=== PATIENT | female | born 1955 ===

== ENCOUNTER 2020-10-27 10:21 | Emergency (ER) | payer OTHER ==
[2020-10-27 10:54] LABS: Absolute Lymphocytes (CBC) 1.7 K/uL (0.7-4.9); Basophils % 0.8 % (0-1.3); Hematocrit 43.2 % (36.0-45.0); Lymphocytes % 35.6 % (15.3-44.8); MPV 8.2 fL (7.6-11.3); RBC Red Blood Cell Count 4.51 M/uL (3.86-4.86)
[2020-10-27] MEDS ORDERED: ONDANSETRON 4 MG/2 ML VIAL ONE ×2 (10:57→13:48)
[2020-10-27] MEDS ORDERED: NA CHLORIDE 0.9% 1,000 ML ONE (10:57)
[2020-10-27] MEDS ORDERED: DIAZEPAM 10 MG/2 ML INJ SYRINGE ONE (11:10)
--- NOTE | 2020-10-27 11:59 | RAD REPORT ---
EXAM DESCRIPTION: CT - Head Brain Wo Cont - 10/27/2020 11:28 am CLINICAL HISTORY: Dizziness COMPARISON: None TECHNIQUE: Computed axial tomography of the head was obtained. IV contrast was not requested. All CT scans are performed using dose optimization technique as appropriate and may include automated exposure control or mA/KV adjustment according to patient size. FINDINGS: An intracranial bleed is not seen . The ventricles are normal in caliber. No extra-axial fluid collection is noted. Fluid within the sinuses/ mastoids is not seen. Marked mucoperiosteal thickening ethmoid sinus IMPRESSION: No acute intracranial abnormality is seen. If patient's symptoms persist MRI of the bra in would be recommended. Marked chronic ethmoid sinusitis
[2020-10-27 12:17] LABS: SARS-COV-2 RT PCR NEGATIVE (NEGATIVE)
--- NOTE | 2020-10-27 12:26 | RAD REPORT ---
EXAM DESCRIPTION: CT - Abdomen Pelvis W Contrast - 10/27/2020 11:32 am CLINICAL HISTORY: Abdominal pain COMPARISON: none. TECHNIQUE: Computed axial tomography of the abdomen pelvis was obtained. 100 cc Isovue-300 was admin istered intravenously. Oral contrast was not requested which limits evaluation of bowel. All CT scans are performed using dose optimization technique as appropriate and may include automated exposure control or mA/KV adjustment according to patient size. FINDINGS: Small gallstone. Gallbladder wall is not thickened. 13 millimeter low to intermediate density lesion right lobe of the liver. Spleen, pancreas, adrenal and kidneys appear unremarkable. There is no evidence of diverticulitis. Normal appendix Calcifications in the uterus probably fibroids. 12 centimeter air-filled structure is present within the posterior left lower lobe not entirely inclu ded in the field of view IMPRESSION: Cholelithiasis without evidence of cholecystitis 13 millimeter low to intermediate density lesion right lobe of the liver may represent a hemangioma. Ultrasound recommended. 12 centimeter air-filled structure within the posterior left lower lobe is not entirely included in t he field of view. This probably represents a bleb, less likely a loculated pneumothorax. Unenhanced C T chest is recommended for further evaluation
[2020-10-27 12:44] LABS: Albumin 4.2 g/dL (3.4-5.0); Bilirubin Direct 0.2 mg/dL (0-0.2); Bilirubin Total 0.5 mg/dL (0.2-1.0); Potassium 4.3 mmol/L (3.5-5.1); Protein, Total 7.5 g/dL (6.4-8.2)
[2020-10-27] MEDS ORDERED: MECLIZINE HCL 12.5 MG TAB ONE (13:48)
--- NOTE | 2020-10-27 14:08 | RAD REPORT ---
EXAM DESCRIPTION: CT - Thorax Wo Con - 10/27/2020 1:46 pm CLINICAL HISTORY: abnormal chest finding in CT abd/pelvis COMPARISON: Abdomen Pelvis W Contrast dated 10/27/2020 TECHNIQUE: Axial 5 mm thick images of the chest were obtained without IV contrast. All CT scans are performed using dose optimization technique as appropriate and may include automated exposure control or mA/KV adjustment according to patient size. FINDINGS: A 10 centimeter size thin-walled air-filled cystic cavity is present in the posterior lung field. This thin-walled structure shows very minimal nodularity along the superolateral margin of th e capsule. There is some scarring or chronic atelectasis in the lung parenchyma abutting this cystic cavity. No thickened septation or worrisome mural nodule. No similar finding large or small noted els ewhere in the lung parenchyma. No bulla or bleb formation otherwise noted. No bronchiectasis or endob ronchial lesions identified. No pleural thickening or pleural effusion. No pneumothorax. No abnormal mediastinal or hilar masses or lymphadenopathy seen. No gross aortic or pulmonary artery finding suspected. Assessment is limited in the absence of IV contrast. No chest wall mass or abnormal axillary lymphadenopathy. IMPRESSION: Solitary, large 10 centimeter thin-walled air-filled cystic cavity in the posterior lowe r left lung field. This is the correlate to the recent CT abdomen finding. No suspicious septation, mural nodule or wall thickening. No other significant finding identified. As a solitary finding this is not likely of any long-term significance for warrants continuous follow -up. This may be the sequela of a prior infectious/inflammatory process or congenital cyst. Neoplast ic etiology is not suspected.
--- NOTE | 2020-10-27 14:35 | EDPHYS ---
Physician Documentation [facility] Name: Giulia Chavarria Age: 65 yrs Sex: Female : 1955 Arrival Date: 10/27/2020 Time: 10:26 Bed 20 Private MD: ED Physician Johnny Felder HPI: 10/27 10:39 This 65 yrs old Female presents to ER via Wheelchair with complaints of pm1 Nausea/Vomiting/Diarrhea. 10:39 The patient presents to the emergency department with nausea, vomiting, diarrhea. pm1 Onset: The symptoms/episode began/occurred today. Possible causes: unknown, possible bad food exposure. The symptoms are aggravated by nothing. The symptoms are alleviated by nothing. Associated signs and symptoms: Pertinent negatives: abdominal pain, dysuria, fever. Severity of symptoms: in the emergency department the symptoms are worse. The patient has been recently seen by a physician: with different complaint(s), was seen by Dr. Manzanares for sinus congestion and bilateral ear congestion last week. Was going to see her again for the same complaint today when she started experiencing vertigo and n/v/d. Historical: - Allergies: 10:31 Sulfa (Sulfonamide Antibiotics); ca1 - PMHx: 10:31 Hypertension; ca1 - PSHx: 10:31 facelift; Tonsillectomy; ca1 - Immunization history:: Client reports receiving the 2nd dose of the Covid vaccine, Client reports receiving the 1st dose of the Covid vaccine. - Social history:: Smoking status: Patient denies any tobacco usage or history of. ROS: 10:39 Constitutional: Negative for fever, chills, and weight loss, Cardiovascular: Negative pm1 for chest pain, palpitations, and edema, Respiratory: Negative for shortness of breath, cough, wheezing, and pleuritic chest pain. 10:39 Eyes: Negative for injury, pain, redness, and discharge. 10:39 Back: Negative for injury and pain, : Negative for injury, bleeding, discharge, and swelling, MS/Extremity: Negative for injury and deformity, Skin: Negative for injury, rash, and discoloration. 10:39 ENT: Positive for bilateral ear congestion and sinus congestion, Negative for sore throat. 10:39 Abdomen/GI: Positive for nausea, vomiting, and diarrhea, Negative for abdominal pain. 10:39 Neuro: Positive for dizziness, Negative for headache, numbness, tingling, weakness. Exam: 10:39 Constitutional: This is a well developed, well nourished patient who is awake, alert, pm1 and in no acute distress. Head/Face: Normocephalic, atraumatic. Vital Signs: 10:27 BP 173 / 106; Pulse 63; Resp 16 S; Pulse Ox 100% on R/A; Weight 52.16 kg (R); Height 5 ca1 ft. 4 in. (162.56 cm) (R); 10:48 BP 160 / 94; Pulse 73; Pulse Ox 100% ; ap3 11:46 BP 154 / 81; Pulse 62; Resp 17; Pulse Ox 100% on R/A; Pain 3/10; ap3 12:38 BP 153 / 84; Pulse 64; Pulse Ox 100% on R/A; ap3 14:20 BP 160 / 88; Pulse 66; Resp 18; Pulse Ox 100% on R/A; zb 10:27 Body Mass Index 19.74 (52.16 kg, 162.56 cm) ca1 MDM: 10:28 Patient medically screened. pm1 14:31 Data reviewed: vital signs. Data interpreted: Pulse oximetry: on room air is 100 %. pm1 Interpretation: normal. Counseling: I had a detailed discussion with the patient and/or guardian regarding: the historical points, exam findings, and any diagnostic results supporting the discharge/admit diagnosis, lab results, radiology results, the need for outpatient follow up, for definitive care, an ENT specialist, a neurologist. 14:31 ED course: Patient with marked resolution of vertigo symptoms with meclizine. Some pm1 vertigo present with changing in position. 10/27 10:39 Order name: Basic Metabolic Panel; Complete Time: 12:50 pm1 10/27 10:39 Order name: CBC with Diff; Complete Time: 11:12 pm1 10/27 10:39 Order name: Hepatic Function; Complete Time: 12:50 pm1 10/27 10:39 Order name: Lipase; Complete Time: 12:50 pm1 10/27 10:39 Order name: CT Head Brain wo Cont; Complete Time: 12:32 pm10/27 10:39 Order name: CT Abd/Pelvis - IV Contrast Only; Complete Time: 12:32 pm1 10/27 12:17 Order name: COVID-19/FLU A+B; Complete Time: 12:32 EDMS 10/27 12:27 Order name: CREATININE WHOLE BLOOD; Complete Time: 12:32 EDMS 10/27 13:13 Order name: CT Chest Wo Con; Complete Time: 14:19 pm1 10/27 10:39 Order name: IV Saline Lock; Complete Time: 10:41 pm1 10/27 10:39 Order name: Labs collected and sent; Complete Time: 10:41 pm1 10/27 11:00 Order name: Labs - recollect needed: recollect green top; Complete Time: 11:12 bd 10/27 11:42 Order name: Labs - recollect needed: recollect green tube again, lab will come bd recollect; Complete Time: 12:04 Administered Medications: 10:40 Drug: Zofran (Ondansetron) 4 mg Route: IVP; Site: right antecubital; ap3 10:59 Follow up: Response: No adverse reaction; Nausea is decreased ap3 10:41 Drug: NS 0.9% 1000 ml Route: IV; Rate: 1000 ml; Site: right antecubital; ap3 14:51 Follow up: Response: No adverse reaction; IV Status: Completed infusion zb 10:53 Drug: Valium (diazepam) 5 mg Route: IVP; Site: right antecubital; ap3 11:12 Follow up: Response: No adverse reaction; Anxiety decreased ap3 13:39 Drug: Zofran (Ondansetron) 4 mg Route: IVP; Site: right forearm; zb 14:51 Follow up: Response: No adverse reaction; Nausea is decreased zb 13:39 Drug: Meclizine 50 mg Route: PO; zb 14:51 Follow up: Response: No adverse reaction; Nausea is decreased zb Disposition: 16:13 Co-signature as Attending Physician, Johnny Felder MD. rn Disposition: 10/27/20 14:34 Discharged to Home. Impression: Benign paroxysmal vertigo, Diarrhea, unspecified, Vomiting, Chronic ethmoidal sinusitis. - Condition is Stable. - Discharge Instructions: Food Choices to Help Relieve Diarrhea, Adult, Benign Positional Vertigo, Diarrhea, Adult, Nausea and Vomiting, Adult. - Prescriptions for Zofran ODT 4 mg Oral tablet,disintegrating - place 1 tablet by TRANSLINGUAL route every 8 hours As needed; 12 tablet. Meclizine 25 mg Oral Tablet - take 1 tablet by ORAL route every 8 hours As needed; 30 tablet. - Medication Reconciliation Form, Thank You Letter, Antibiotic Education, Prescription Opioid Use form. - Follow up: Emergency Department; When: As needed; Reason: Worsening of condition. Follow up: Private Physician; When: 2 - 3 days; Reason: Recheck today's complaints, Continuance of care, Re-evaluation by your physician. Follow up: Chelsey Manzanares MD; When: 2 - 3 days; Reason: Recheck today's complaints, Continuance of care, Re-evaluation by your physician. - Problem is new. - Symptoms have improved. Signatures: Dispatcher [employer] EDMS Gabriella Boykin Roman, MD MD rn Marinas, Patrick, COVER CREASER COVER CREASER pm1 Mayra Velasquez RN RN errol3 Shala Selby RN Francie Mathew RN FAZAL michel Corrections: (The following items were deleted from the chart) 11:37 11:12 CORONAVIRUS+MR.LAB.BRZ ordered. EDND EDMS 11:38 11:12 Influenza Screen (A \T\ B)+BA.LAB.BRZ ordered. EDND EDMS 14:36 14:34 10/27/2020 14:34 Discharged to Home. Impression: Benign paroxysmal vertigo; pm1 Diarrhea, unspecified; Vomiting; Chronic ethmoidal sinusitis. Condition is Stable. Forms are Medication Reconciliation Form, Thank You Letter, Antibiotic Education, Prescription Opioid Use. Follow up: Emergency Department; When: As needed; Reason: Worsening of condition. Follow up: Private Physician; When: 2 - 3 days; Reason: Recheck today's complaints, Continuance of care, Re-evaluation by your physician. Problem is new. Symptoms have improved. pm1 14:52 14:36 10/27/2020 14:34 Discharged to Home. Impression: Benign paroxysmal vertigo; zb Diarrhea, unspecified; Vomiting; Chronic ethmoidal sinusitis. Condition is Stable. Discharge Instructions: Food Choices to Help Relieve Diarrhea, Adult, Benign Positional Vertigo, Diarrhea, Adult, Nausea and Vomiting, Adult. Prescriptions for Zofran ODT 4 mg Oral tablet,disintegrating - place 1 tablet by TRANSLINGUAL route every 8 hours As needed; 12 tablet, Meclizine 25 mg Oral Tablet - take 1 tablet by ORAL route every 8 hours As needed; 30 tablet. and Forms are Medication Reconciliation Form, Thank You Letter, Antibiotic Education, Prescription Opioid Use. Follow up: Emergency Department; When: As needed; Reason: Worsening of condition. Follow up: Private Physician; When: 2 - 3 days; Reason: Recheck today's complaints, Continuance of care, Re-evaluation by your physician. Follow up: Chelsey Manzanares; When: 2 - 3 days; Reason: Recheck today's complaints, Continuance of care, Re-evaluation by your physician. Problem is new. Symptoms have improved. pm1
--- NOTE | 2020-10-27 14:35 | ER ---
Nurse's Notes [facility] Name: Giulia Chavarria Age: 65 yrs Sex: Female : 1955 Arrival Date: 10/27/2020 Time: 10:26 Bed 20 Private MD: Diagnosis: Benign paroxysmal vertigo;Diarrhea, unspecified;Vomiting;Chronic ethmoidal sinusitis Presentation: 10/27 10:27 Chief complaint: Patient states: I am having some ear issues and am seeing Dr. Manzanares. ca1 This morning, woke up with dizziness, nausea and vomiting. Also having diarrhea. Coronavirus screen: Client denies travel out of the [place] in the last 14 days. diarrhea, nausea, vomiting. Client presents with at least one sign or symptom that may indicate coronavirus-19. Standard/surgical mask placed on the client. Provider contacted for isolation considerations. Ebola Screen: Patient negative for fever greater than or equal to 101.5 degrees Fahrenheit, and additional compatible Ebola Virus Disease symptoms Patient denies exposure to infectious person. Patient denies travel to an Ebola-affected area in the 21 days before illness onset. No symptoms or risks identified at this time. Initial Sepsis Screen: Does the patient meet any 2 criteria? No. Patient's initial sepsis screen is negative. Does the patient have a suspected source of infection? No. Patient's initial sepsis screen is negative. Risk Assessment: Do you want to hurt yourself or someone else? Patient reports no desire to harm self or others. Onset of symptoms was October 27, 2020. 10:27 Method Of Arrival: Wheelchair ca1 10:27 Acuity: ELIZA 2 ca1 Historical: - Allergies: 10:31 Sulfa (Sulfonamide Antibiotics); ca1 - PMHx: 10:31 Hypertension; ca1 - PSHx: 10:31 facelift; Tonsillectomy; ca1 - Immunization history:: Client reports receiving the 2nd dose of the Covid vaccine, Client reports receiving the 1st dose of the Covid vaccine. - Social history:: Smoking status: Patient denies any tobacco usage or history of. Screenin:47 Abuse screen: Denies threats or abuse. Nutritional screening: No deficits noted. ap3 Tuberculosis screening: No symptoms or risk factors identified. Fall Risk No fall in past 12 months (0 pts). No secondary diagnosis (0 pts). IV access (20 points). Ambulatory Aid- None/Bed Rest/Nurse Assist (0 pts). Gait- Weak (10 pts.). Mental Status- Oriented to own ability (0 pts). Total Alvarez Fall Scale indicates Low Risk Score (25-44 pts). Fall prevention measures have been instituted. Side Rails Up X 2 Placed close to Nursing Station Frequent Obs/Assesments occuring Family Present and informed to notify staff if they need to leave bedside As available Patient and Family Educated on Fall Prevention Program and strategies. Assessment: 10:42 General: Appears distressed, uncomfortable, Behavior is anxious, restless. Pain: Denies ap3 pain. Neuro: Level of Consciousness is awake, Oriented to person, place, time, situation, Gait is unsteady. Cardiovascular: Capillary refill < 3 seconds. Respiratory: Airway is patent Respiratory effort is even, unlabored, Respiratory pattern is symmetrical, tachypnea. GI: Abdomen is flat, non-distended, Pt is actively vomiting Reports cramping, diarrhea. : No signs and/or symptoms were reported regarding the genitourinary system. EENT: Reports nasal congestion. Derm: No signs and/or symptoms reported regarding the dermatologic system. Musculoskeletal: Capillary refill < 3 seconds. 10:45 General: patient educated on slowing her breathing down, patient verbalized ap3 understanding and demonstrated breathing in through her nose and out through her mouth. . 11:49 Reassessment: Patient and/or family updated on plan of care and expected duration. Pain ap3 level reassessed. Patient is alert, oriented x 3, equal unlabored respirations, skin warm/dry/pink. Patient states symptoms have improved. 13:10 Reassessment: Patient and/or family updated on plan of care and expected duration. Pain ap3 level reassessed. family member at the bedside. 13:32 Reassessment: ECP at bedside discussing care with patient. zb Vital Signs: 10:27 BP 173 / 106; Pulse 63; Resp 16 S; Pulse Ox 100% on R/A; Weight 52.16 kg (R); Height 5 ca1 ft. 4 in. (162.56 cm) (R); 10:48 BP 160 / 94; Pulse 73; Pulse Ox 100% ; ap3 11:46 BP 154 / 81; Pulse 62; Resp 17; Pulse Ox 100% on R/A; Pain 3/10; ap3 12:38 BP 153 / 84; Pulse 64; Pulse Ox 100% on R/A; ap3 14:20 BP 160 / 88; Pulse 66; Resp 18; Pulse Ox 100% on R/A; zb 10:27 Body Mass Index 19.74 (52.16 kg, 162.56 cm) ca1 ED Course: 10:26 Patient arrived in ED. ll1 10:28 Porfirio Rueda NP is PHCP. pm1 10:28 Johnny Felder MD is Attending Physician. pm1 10:30 Triage completed. ca1 10:31 Arm band placed on right wrist. ca1 10:40 Mayra Velsaquez, FAZAL is Primary Nurse. ap3 10:42 Inserted saline lock: 20 gauge in right antecubital area, using aseptic technique. ap3 Blood collected. 10:47 Patient has correct armband on for positive identification. Placed in gown. Bed in low ap3 position. Call light in reach. Side rails up X 1. Adult w/ patient. Pulse ox on. NIBP on. Door closed. Noise minimized. 11:[address] via wheelchair. ap3 11:27 CT Head Brain wo Cont In Process Unspecified. EDMS 11:32 CT Abd/Pelvis - IV Contrast Only In Process Unspecified. EDMS 13:00 Nurse Practitioner and/or Physician Buyer Broker to see patient. ap3 13:46 CT Chest Wo Con In Process Unspecified. EDMS 14:32 Nurse Practitioner and/or Physician Buyer Broker to see patient. zb 14:36 Chelsey Manzanares MD is Referral Physician. pm1 14:50 No provider procedures requiring assistance completed. IV discontinued, intact, zb bleeding controlled, No redness/swelling at site. Pressure dressing applied. Administered Medications: 10:40 Drug: Zofran (Ondansetron) 4 mg Route: IVP; Site: right antecubital; ap3 10:59 Follow up: Response: No adverse reaction; Nausea is decreased ap3 10:41 Drug: NS 0.9% 1000 ml Route: IV; Rate: 1000 ml; Site: right antecubital; ap3 14:51 Follow up: Response: No adverse reaction; IV Status: Completed infusion zb 10:53 Drug: Valium (diazepam) 5 mg Route: IVP; Site: right antecubital; ap3 11:12 Follow up: Response: No adverse reaction; Anxiety decreased ap3 13:39 Drug: Zofran (Ondansetron) 4 mg Route: IVP; Site: right forearm; zb 14:51 Follow up: Response: No adverse reaction; Nausea is decreased zb 13:39 Drug: Meclizine 50 mg Route: PO; zb 14:51 Follow up: Response: No adverse reaction; Nausea is decreased zb Outcome: 14:34 Discharge ordered by MD. pm1 14:50 Discharged to home ambulatory, with family. zb 14:50 Condition: good 14:50 Discharge instructions given to patient, significant other, Instructed on discharge instructions, follow up and referral plans. medication usage, Demonstrated understanding of instructions, follow-up care, medications, Prescriptions given X 2. 14:52 Patient left the ED. zb Signatures: Dispatcher [employer] EDMS Porfirio Rueda NP STEREOPTIC PROJECTION TOPOGRAPHER pm1 Mayra Velasquez RN RN ap3 Shala Selby RN RN ca1 Lewis, Lynsay, RN RN ll1 Francie August RN RN zb
[2020-10-27 14:58] VITALS: O2SAT 100
[2020-10-27 15:04] VITALS: BP 160/88
== END 2020-10-27 14:52 | disposition home or self-care (01) ==
LOC: ER 10:21
DX: H81.10 Benign paroxysmal vertigo, unspecified ear (principal); J32.2 Chronic ethmoidal sinusitis; R19.7 Diarrhea, unspecified; I10 Essential (primary) hypertension; Z88.2 Allergy status to sulfonamides; Z20.822 Contact with and (suspected) exposure to COVID-19
CPT/HCPCS: 85025; 80048; 36415; 82565; 80076; 83690; 0240U; 70450; 71250; 74177; Q9967; J3360; J7030; J2405 ×2; 99284